=== PATIENT | female | born 1960 | race African-American/Black ===

== ENCOUNTER → 2018-02-08 | Outpatient (CLI) | payer OTHER, MEDICARE ==
[~2018-02-08] MED LIST: CARVEDILOL6.25 MG PO; COUMADIN 10MG T10 M1 PO; COUMADIN 3 MG TA3 MG PO; LEVEMIR SUBQ; NEURONTIN 300300 M1 PO; PAXIL10 MG; ZOCOR40 MG PO
== END ==
LOC: CAT 14:30
DX: G93.89 Other specified disorders of brain (principal); I63.9 Cerebral infarction, unspecified